=== PATIENT | male | born 1990 | race Two or more races ===

== ENCOUNTER 2020-08-08 17:17 | Outpatient (REF) | payer OTHER, SELFPAY ==
[2020-08-08 18:33] LABS: COVID-19 Test Negative (Negative)
== END 2020-08-08 17:18 | disposition home or self-care (01) ==
LOC: HO.LAB 17:17
PROVIDERS: Visit Provider Internal Medicine
DX: Z20.828 Contact with and (suspected) exposure to other viral communicable diseases (principal)
CPT/HCPCS: 87635

== ENCOUNTER 2020-08-28 11:26 | Outpatient (REF) | payer OTHER, SELFPAY | END 2020-08-28 11:27 | disposition home or self-care (01) | LOC: HO.LAB 11:26 | PROVIDERS: Visit Provider Internal Medicine | DX: Z20.828 Contact with and (suspected) exposure to other viral communicable diseases (principal) | CPT/HCPCS: U0003 ==

== ENCOUNTER → 2021-03-11 09:20 | Outpatient (REF) | payer OTHER, SELFPAY ==
--- NOTE | ~2021-03-11 | US_ITS ---
EXAMINATION: US ABDOMEN LIMITED CLINICAL INFORMATION: Other specified abnormal findings of blood chemistry. COMPARISON: None TECHNIQUE: Real-time imaging of the right upper quadrant abdominal viscera. FINDINGS: PANCREAS: Head and body the pancreas are normal. The tail is not well seen due to bowel gas. LIVER: Normal. The liver is normal in size. The liver contour is normal. Parenchymal echogenicity is normal. No focal hepatic lesion. There is no intrahepatic biliary duct dilatation seen. GALLBLADDER: . The gallbladder is physiologically distended without evidence of stones, sludge, polyps, wall thickening or pericholecystic fluid. There is a phrygian cap. COMMON BILE DUCT: Not optimally visualized. The visualized common bile duct is normal in caliber measuring 0.5 cm in diameter. RIGHT KIDNEY: Normal. No hydronephrosis. No renal calculi or focal parenchymal lesions. The kidney measures 9.2 cm in maximum dimension. FREE FLUID: None. US/US abdomen limited IMPRESSION: Limited visualization of the tail the pancreas and common bile duct otherwise unremarkable exam.
== END ==
LOC: HO.SL 09:20
PROVIDERS: PCP Internal Medicine; Visit Provider Internal Medicine
DX: R79.89 Other specified abnormal findings of blood chemistry (principal); R94.5 Abnormal results of liver function studies; G47.10 Hypersomnia, unspecified
CPT/HCPCS: 76705

== ENCOUNTER 2021-08-20 11:28 | Emergency (ER) | payer OTHER, SELFPAY ==
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
[2021-08-20 11:40] VITALS: BP 127/70; PULSE 78; RESP 16; TEMP 36.6; O2SAT 99; BMI 28.1
[2021-08-20] MEDS: Ibuprofen 600 MG TABLET PO (12:25)
[2021-08-20] MEDS: Lidocaine 4 % Patch ADH..PATCH 1 PATCH TRANSDERMA (12:25)
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
[2021-08-20 13:30] VITALS: RESP 18
== END 2021-08-20 14:05 | disposition home or self-care (01) ==
PROVIDERS: Emergency Provider Emergency Medicine
DX: S29.012A Strain of muscle and tendon of back wall of thorax, initial encounter (principal); V43.52XA Car driver injured in collision with other type car in traffic accident, initial encounter; Y93.89 Activity, other specified; Y92.411 Interstate highway as the place of occurrence of the external cause; Y99.9 Unspecified external cause status
CPT/HCPCS: 72072; 99283; 99284

== ENCOUNTER → 2022-06-10 09:39 | Outpatient (BNVA) | payer SELFPAY | PROVIDERS: Visit Provider Physician Assistant Medical | DX: Z02.79 Encounter for issue of other medical certificate (principal) ==

== ENCOUNTER 2022-10-08 10:57 | Outpatient (REF) | payer OTHER, SELFPAY ==
--- NOTE | ~2022-10-08 | MM_ITS ---
EXAMINATION: MM DIAGNOSTIC DIGITAL BREAST TOMOSYNTHESIS BILATERAL BREAST ULTRASOUND CLINICAL INFORMATION: Bilateral gynecomastia. Retroareolar mass 1 cm bilateral. COMPARISON: Mammography: None. TECHNIQUE: Digital breast tomosynthesis is performed in both the craniocaudal and mediolateral oblique views along with computer-aided detection (CAD). Synthesized 2D images are generated from the tomosynthesis. Bilateral targeted breast ultrasound. FINDINGS: There are scattered areas of fibroglandular density (ACR BI-RADS breast composition Category b). There are no significant masses, abnormal calcifications, or other abnormalities. No abnormal cystic or solid mass or region of abnormal distal sound shadowing was seen with ultrasound of both breasts. No edematous change is identified. Results are discussed with the patient at time of visit. MM/MM tomosynthesis diagnostic BI IMPRESSION: No mammographic or ultrasound evidence of malignancy. ASSESSMENT: BI-RADS 1: Negative. RECOMMENDATION: Clinical follow-up.
== END 2022-10-08 10:58 | disposition home or self-care (01) ==
LOC: HO.MAMMO 10:57
PROVIDERS: PCP Internal Medicine; Visit Provider Internal Medicine
DX: N62 Hypertrophy of breast (principal); K40.90 Unilateral inguinal hernia, without obstruction or gangrene, not specified as recurrent
CPT/HCPCS: 76642; 77062; 77066

== ENCOUNTER → 2022-10-13 08:58 | Outpatient (BNVA) | payer OTHER, SELFPAY | PROVIDERS: PCP Internal Medicine; Referring Provider Internal Medicine; Visit Provider Surgery | DX: K40.90 Unilateral inguinal hernia, without obstruction or gangrene, not specified as recurrent (principal); E78.00 Pure hypercholesterolemia, unspecified; N28.9 Disorder of kidney and ureter, unspecified; R94.5 Abnormal results of liver function studies; G47.33 Obstructive sleep apnea (adult) (pediatric); L73.9 Follicular disorder, unspecified; Z99.89 Dependence on other enabling machines and devices | CPT/HCPCS: 99202 ==

== ENCOUNTER 2022-11-19 07:59 | Outpatient (REF) | payer OTHER, SELFPAY ==
[2022-11-19 08:24] LABS: MANUAL DIFF FLAG NO
[2022-11-19 08:31] LABS: Basophils Percent Auto 0.2 % (0-2); Eosinophils Absolute Auto 0.1 X10*3/uL (0.0-0.4); Eosinophils Percent Auto 1.4 % (0-4); Hematocrit 42.8 % (42.0-52.0); Imm Gran Abs Auto 0.03 X10*3/uL (0.00-0.03); Imm Gran Pct Auto 0.5 % (0.0-0.4); Lymphocytes Absolute Auto 1.5 X10*3/uL (1.2-4.9); Lymphocytes Percent Auto 22.6 % (20-40); Mean Corpuscular HGB Conc 32.7 g/dl (31.0-36.0); Mean Corpuscular Hemoglobin 27.3 pg (27.0-33.0); Mean Corpuscular Volume 83.6 fL (80.0-98.0); Mean Platelet Volume 9.7 fL (9.4-12.4); Monocytes Absolute Auto 1.1 X10*3/uL (0.1-1.2); Monocytes Percent Auto 16.5 % (2-11); Neutrophils Absolute Auto 3.8 x10*3/uL (2.0-8.3); Neutrophils Percent Auto 58.8 % (45-73); Platelet Count 221 X10*3/uL (160-400); Red Blood Count 5.12 X10*6/uL (4.60-5.80); Red Cell Distribution Width 13.1 % (11.0-16.0); White Blood Count 6.5 X10*3/uL (4.8-10.8)
[2022-11-19 09:17] LABS: Alanine Aminotransferase 57 U/L (0-40); Albumin Level 4.2 g/dL (3.5-5.0); Alkaline Phosphatase 95 U/L (39-117); Anion Gap 13 (12-20); Aspartate Amino Transferase 44 U/L (5-37); Bilirubin Total 0.4 mg/dL (0.0-1.0); Blood Urea Nitrogen 13 mg/dL (9-16); Carbon Dioxide 26 mmol/L (22-29); Chloride 107 mmol/L (96-108); Cholesterol 204 mg/dL; Estimated Glomerular Filt Rate 58; Glucose Random 104 mg/dL (60-115); HDL Cholesterol 36 mg/dL; LDL Cholesterol Calculated 138 mg/dl; Potassium 4.1 mmol/L (3.3-5.1); Sodium 142 mmol/L (135-145); Total Protein 7.1 g/dL (6.5-8.0); Triglycerides 150 mg/dL
[2022-11-19 09:23] LABS: HBS Num1 3.18 mIU/mL (0-7.99); HBc Num1 0.07 S/CO (0.00-0.79); Hepatitis B Core Antibody Nonreactive (Nonreactive); Hepatitis B Surface Antigen Negative (Negative); ~HepC Num1 0.11 S/CO (0.00-0.79); ~Hepatitis B Surface Antibody NONREACTIVE (Nonreactive); ~Hepatitis C Antibody Nonreactive (Nonreactive)
[2022-11-19 09:25] LABS: Free T4 (Free Thyroxine) 0.91 ng/dL (0.71-1.85); Thyroid Stimulating Hormone 0.84 uIU/mL (0.32-4.0)
[2022-11-19 09:35] LABS: Folate 9.8 ng/mL (> or = 4.0); Vitamin B12 586 pg/mL (200-900)
== END 2022-11-19 08:00 | disposition home or self-care (01) ==
LOC: HO.LAB 07:59
PROVIDERS: PCP Internal Medicine; Visit Provider Internal Medicine
DX: R79.89 Other specified abnormal findings of blood chemistry (principal); R94.5 Abnormal results of liver function studies; N28.9 Disorder of kidney and ureter, unspecified; E78.00 Pure hypercholesterolemia, unspecified
CPT/HCPCS: 36415; 80053; 80061; 82607; 82746; 84439; 84443; 85025; 86704; 86706; 86803; 87340

== ENCOUNTER → 2022-12-08 09:26 | Outpatient (BNVA) | payer OTHER, SELFPAY | PROVIDERS: PCP Internal Medicine; Referring Provider Internal Medicine; Visit Provider Surgery | DX: K40.90 Unilateral inguinal hernia, without obstruction or gangrene, not specified as recurrent (principal); E78.00 Pure hypercholesterolemia, unspecified; R94.5 Abnormal results of liver function studies | CPT/HCPCS: 99212 ==

== ENCOUNTER 2023-01-24 21:05 | Observation (INO) | payer OTHER, SELFPAY ==
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
[2023-01-24 21:12] VITALS: BP 144/88; PULSE 150; O2SAT 95; BMI 31.1
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
[2023-01-24 21:23] VITALS: RESP 28
[2023-01-24] MEDS: fentaNYL citrate/PF 100 MCG/2 ML VIAL 25 MCG IVPUSH ×2 (21:23→21:49)
[2023-01-24] MEDS: 0.9 % Sodium Chloride 1,000 ML 999 ML IV ×2 (21:25→23:23)
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
[2023-01-24 21:35] VITALS: BP 167/92; PULSE 116; RESP 22; O2SAT 95
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
[2023-01-24] MEDS: Diphth,Pertus(ACell),Tet Adult 0.5 ML SYRINGE IM (21:49)
[2023-01-24] MEDS: Bacitracin Oint 0.9 GM PACKET 1 APPL TOPICAL (21:49)
[2023-01-24] MEDS: iohexoL 350 MG/ML 100 ML INFUS..BTL IV (21:59)
[2023-01-24] MEDS: Bacitracin Oint 14 GM TUBE 1 APPL TOPICAL (22:10)
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
[2023-01-24 22:25] VITALS: BP 148/91; PULSE 130; RESP 15; O2SAT 95
--- NOTE | 2023-01-24 22:29 | PC.NURSE ---
Addendum entered by Radha Eugene RN 01/24/23 23:14: PD still at the bedside as of 23:14. EKG documentation and wound dressing has been delayed. Pt condition has remained stable. Original Note: [place] PD is at bedside talking to pt. Pt i A&Ox4, able to recall all events leading up to arriving at the ER.
[2023-01-24 22:35] LABS: Basophils Percent Auto 0.2 % (0-2); Hematocrit 40.4 % (42.0-52.0); Imm Gran Abs Auto 0.09 X10*3/uL (0.00-0.03); Imm Gran Pct Auto 0.5 % (0.0-0.4); Lymphocytes Percent Auto 5.4 % (20-40); MANUAL DIFF FLAG SCAN; Mean Corpuscular HGB Conc 34.7 g/dl (31.0-36.0); Mean Corpuscular Hemoglobin 28.4 pg (27.0-33.0); Mean Corpuscular Volume 81.9 fL (80.0-98.0); Mean Platelet Volume 9.6 fL (9.4-12.4); Monocytes Absolute Auto 1.9 X10*3/uL (0.1-1.2); Monocytes Percent Auto 10.2 % (2-11); Neutrophils Absolute Auto 15.3 x10*3/uL (2.0-8.3); Neutrophils Percent Auto 83.7 % (45-73); Platelet Count 252 X10*3/uL (160-400); Red Blood Count 4.93 X10*6/uL (4.60-5.80); Red Cell Distribution Width 13.2 % (11.0-16.0); SCAN SMEAR FLAG 1; White Blood Count 18.2 X10*3/uL (4.8-10.8)
[2023-01-24 22:43] LABS: COVID-19 Test Negative (Negative); IDNOW Serial# 6674DD1D
[2023-01-24 22:45] LABS: INTERNATIONAL NORM RATIO 1.1 (0.9-1.1); Prothrombin Time 12.7 SEC (10.0-13.1)
[2023-01-24 22:47] LABS: Ethanol < 10 mg/dL
[2023-01-24 22:49] LABS: Alanine Aminotransferase 57 U/L (0-40); Albumin Level 4.3 g/dL (3.5-5.0); Alkaline Phosphatase 76 U/L (39-117); Anion Gap 16 (12-20); Aspartate Amino Transferase 55 U/L (5-37); Bilirubin Total 0.6 mg/dL (0.0-1.0); Blood Urea Nitrogen 15 mg/dL (9-16); Calcium 8.7 mg/dL (8.4-10.2); Carbon Dioxide 21 mmol/L (22-29); Chloride 107 mmol/L (96-108); Creatinine Clr Calc Pharmacy 74.7; Estimated Glomerular Filt Rate 53; Glucose Random 137 mg/dL (60-115); Potassium 4.5 mmol/L (3.3-5.1); Sodium 139 mmol/L (135-145); Total Protein 7.2 g/dL (6.5-8.0)
[2023-01-24 23:01] LABS: SLIDE REVIEW VERIFIED
--- NOTE | 2023-01-24 23:10 | MHC.EDTECH ---
[place] PD, [place] [employer] continue to be at bedside. EKG delayed due to their continued presence. Pt tolerating questioning well. Pt given Ice chips per Dr Rosario.
--- NOTE | 2023-01-24 23:24 | PC.NURSE ---
Dr Rosario stated we can take c-collar off. C-collar has been removed, second liter of fluid hung.
[2023-01-25] VITALS: BP 145/77; PULSE 110; RESP 26; TEMP 37.6; O2SAT 98
[2023-01-25 00:24] LABS: Appearance Urine Clear; Color Urine Yellow; Glucose Urine UA 250 mg/dL (Negative); Leukocyte Esterase Urine Negative (Negative); Nitrite Urine Negative (Negative); Specific Gravity - Urine >= 1.030 (1.005-1.025); UMIC TRIGGER UACC YES; Urine Blood Small (1+) (Negative); Urine Ketones Trace mg/dL (Negative); Urine Protein 100 (2+) mg/dL (Neg-Trace)
[2023-01-25 00:35] LABS: Amphetamine Screen Urine Not Detected (Not Detect); Bacteria Urine None Seen (None Seen); Barbiturates, Urine Not Detected (Not Detect); Benzodiazepines Screen Urine Not Detected (Not Detect); Cannabinoid Screen Urine Not Detected (Not Detect); Cocaine Screen Urine Not Detected (Not Detect); Fentanyl, urine POSITIVE (Not Detect); Opiate Screen Urine Not Detected (Not Detect); Phencyclidine Screen Urine Not Detected (Not Detect); RBC Urine 0-2 /HPF (0-2); Squamous Epithelial Cell Urine 0-2 /HPF (0-2); WBC Urine 0-5 /HPF (0-5)
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
[2023-01-25 01:00] LABS: Glucose, Whole Blood 134 mg/dL (60-115)
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
[2023-01-25] MEDS: Acetaminophen 325 MG TABLET 650 MG PO ×2 (02:25→08:52)
[2023-01-25] MEDS: Lactated Ringers 1,000 ML 125 ML IVCONT (02:28)
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
--- NOTE | 2023-01-25 02:37 | MHC.EDTECH ---
pt given a sandwich and snacks, tolerated well. pt is with family t this time
[2023-01-25 03:02] VITALS: BP 137/81; PULSE 109; RESP 18; TEMP 37; O2SAT 96
[2023-01-25 03:19] VITALS: BMI 29.5
[2023-01-25 06:00] LABS: MANUAL DIFF FLAG NO
[2023-01-25 06:07] LABS: Basophils Percent Auto 0.2 % (0-2); Hematocrit 39.9 % (42.0-52.0); Hemoglobin 13.1 g/dl (14.0-18.0); Imm Gran Abs Auto 0.06 X10*3/uL (0.00-0.03); Imm Gran Pct Auto 0.5 % (0.0-0.4); Lymphocytes Absolute Auto 1.6 X10*3/uL (1.2-4.9); Lymphocytes Percent Auto 12.6 % (20-40); Mean Corpuscular HGB Conc 32.8 g/dl (31.0-36.0); Mean Corpuscular Hemoglobin 27.6 pg (27.0-33.0); Mean Platelet Volume 10.1 fL (9.4-12.4); Monocytes Absolute Auto 1.4 X10*3/uL (0.1-1.2); Monocytes Percent Auto 10.9 % (2-11); Neutrophils Absolute Auto 9.7 x10*3/uL (2.0-8.3); Neutrophils Percent Auto 75.8 % (45-73); Platelet Count 249 X10*3/uL (160-400); Red Blood Count 4.75 X10*6/uL (4.60-5.80); Red Cell Distribution Width 13.4 % (11.0-16.0); White Blood Count 12.7 X10*3/uL (4.8-10.8)
[2023-01-25 06:45] LABS: Anion Gap 13 (12-20); Blood Urea Nitrogen 12 mg/dL (9-16); Calcium 8.5 mg/dL (8.4-10.2); Carbon Dioxide 20 mmol/L (22-29); Chloride 108 mmol/L (96-108); Creatinine Clr Calc Pharmacy 91.5; Estimated Glomerular Filt Rate > 60; Glucose Random 113 mg/dL (60-115); Potassium 4.4 mmol/L (3.3-5.1); Sodium 137 mmol/L (135-145)
[2023-01-25 07:48] VITALS: BP 123/71; PULSE 101; RESP 18; TEMP 37.1; O2SAT 98
[2023-01-25 07:49] LABS: Estimated Average Glucose 108 mg/dL; Hemoglobin A1c % 5.4 %
--- NOTE | 2023-01-25 09:05 | PHA.MEDREC ---
Pharmacy Consult ? Medication Reconciliation Pharmacy has completed the medication reconciliation. spoke with patient. only takes tylenol when needed.
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
--- NOTE | 2023-01-25 09:35 | MHC.CM.PN ---
PT WILL DC HOME TODAY WITH NO SERVICES FAMILY TO TRANSPORT
--- NOTE | 2023-01-25 15:22 | MHC.CM.PN ---
PT LIVES WITH HIS S/O AND IS INDEPENDENT WITH CARE NO CM INTERVENTION INDICATED PT DISCHARGING HOME TODAY WITH NO SERVICES FAMILY TO TRANSPORT
== END 2023-01-25 11:16 | disposition home or self-care (01) ==
LOC: HO.ED 01-25 01:11 → HO.EDOVER 01-25 02:10 → HO.S3 01-25 02:17
PROVIDERS: Admitting Provider Internal Medicine; Emergency Provider Student in an Organized Health Care Education/Training Program; PCP Internal Medicine; Visit Provider Internal Medicine
DX: S00.83XA Contusion of other part of head, initial encounter (principal); S01.81XA Laceration without foreign body of other part of head, initial encounter; S81.011A Laceration without foreign body, right knee, initial encounter; S81.812A Laceration without foreign body, left lower leg, initial encounter; S60.812A Abrasion of left wrist, initial encounter; S60.811A Abrasion of right wrist, initial encounter; S90.512A Abrasion, left ankle, initial encounter; S90.511A Abrasion, right ankle, initial encounter; T24.512A Corrosion of first degree of left thigh, initial encounter; T24.511A Corrosion of first degree of right thigh, initial encounter; T22.192A Burn of first degree of multiple sites of left shoulder and upper limb, except wrist and hand, initial encounter; T22.191A Burn of first degree of multiple sites of right shoulder and upper limb, except wrist and hand, initial encounter; T32 Corrosions classified according to extent of body surface involved; X98.2XXA Assault by hot fluids, initial encounter; T79.6XXA Traumatic ischemia of muscle, initial encounter; N17.9 Acute kidney failure, unspecified; D72.829 Elevated white blood cell count, unspecified; E78.00 Pure hypercholesterolemia, unspecified; K40.90 Unilateral inguinal hernia, without obstruction or gangrene, not specified as recurrent; Z20.822 Contact with and (suspected) exposure to COVID-19; Y93.9 Activity, unspecified; Y92.9 Unspecified place or not applicable; Y99.9 Unspecified external cause status
CPT/HCPCS: 16000; 36415; 70450; 70486; 70491; 71260; 74177; 80048; 80053; 80307; 81001; 82077; 82550; 82947; 83036; 84484; 85025; 85610; 86850; 86900; 86901; 87635; 90471; 90715; 93005; 96361; 96374; 96376; 99221; 99285; J3010; Q9967

== ENCOUNTER 2023-02-02 08:07 | Outpatient (RCR) | payer OTHER, SELFPAY | END 2023-02-20 13:43 | disposition home or self-care (01) | LOC: HO.WCC 08:07 | PROVIDERS: PCP Internal Medicine; Visit Provider Physician Assistant | DX: S91.011A Laceration without foreign body, right ankle, initial encounter (principal); S81.812A Laceration without foreign body, left lower leg, initial encounter; T21.22XA Burn of second degree of abdominal wall, initial encounter; T24.212A Burn of second degree of left thigh, initial encounter; T24.211A Burn of second degree of right thigh, initial encounter; T31.10 Burns involving 10-19% of body surface with 0% to 9% third degree burns; X97.XXXA Assault by smoke, fire and flames, initial encounter; X99.9XXA Assault by unspecified sharp object, initial encounter; Y93.9 Activity, unspecified; Y92.9 Unspecified place or not applicable; Y99.9 Unspecified external cause status | CPT/HCPCS: 99212; 99214 ==

== ENCOUNTER 2023-10-13 07:56 | Outpatient (REF) | payer OTHER, SELFPAY ==
[2023-10-13 09:07] LABS: Alanine Aminotransferase 45 U/L (0-40); Albumin Level 4.5 g/dL (3.5-5.0); Alkaline Phosphatase 66 U/L (39-117); Anion Gap 12 (12-20); Aspartate Amino Transferase 37 U/L (5-37); Bilirubin Total 0.5 mg/dL (0.0-1.0); Blood Urea Nitrogen 17 mg/dL (9-16); Calcium 9.5 mg/dL (8.4-10.2); Carbon Dioxide 26 mmol/L (22-29); Chloride 108 mmol/L (96-108); Cholesterol 230 mg/dL (<200); Estimated Glomerular Filt Rate > 60; Glucose Random 93 mg/dL (60-115); HDL Cholesterol 44 mg/dL (>40); LDL Cholesterol Calculated 145 mg/dL (<100); Potassium 3.9 mmol/L (3.3-5.1); Sodium 142 mmol/L (135-145); Total Protein 8.2 g/dL (6.5-8.0); Triglycerides 209 mg/dL (<150)
[2023-10-13 09:12] LABS: Estimated Average Glucose 108 mg/dL; Hemoglobin A1c % 5.4 % (<6.0)
== END 2023-10-13 07:57 | disposition home or self-care (01) ==
LOC: HO.LAB 07:56
PROVIDERS: PCP Internal Medicine; Referring Provider Physician Assistant; Visit Provider Internal Medicine
DX: T79.6XXD Traumatic ischemia of muscle, subsequent encounter (principal); R94.5 Abnormal results of liver function studies; E78.00 Pure hypercholesterolemia, unspecified; L03.119 Cellulitis of unspecified part of limb
CPT/HCPCS: 36415; 80053; 80061; 82550; 83036

== ENCOUNTER 2023-10-16 11:28 | Outpatient (AMB) | payer OTHER, SELFPAY ==
[2023-10-16 11:31] VITALS: BP 122/70; PULSE 58; O2SAT 99; BMI 28.8
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
== END 2023-10-16 12:16 | disposition home or self-care (01) ==
PROVIDERS: Visit Provider Internal Medicine
DX: Z00.00 Encounter for general adult medical examination without abnormal findings (principal); T79.6XXD Traumatic ischemia of muscle, subsequent encounter; N28.9 Disorder of kidney and ureter, unspecified; E78.00 Pure hypercholesterolemia, unspecified; G47.33 Obstructive sleep apnea (adult) (pediatric); Z99.89 Dependence on other enabling machines and devices; K40.90 Unilateral inguinal hernia, without obstruction or gangrene, not specified as recurrent; M25.572 Pain in left ankle and joints of left foot
CPT/HCPCS: 99395

== ENCOUNTER 2024-10-17 12:38 | Outpatient (AMB) | payer OTHER, SELFPAY ==
--- NOTE | 2024-10-17 12:41 | MHC.PC.OV ---
Vital Signs 10/17/24 12:42 Height 5 ft 7 in Weight 189 lb BMI 29.6 BP 128/78 Blood Pressure Location Lt brachial Position Sitting Pulse 81 Pulse Source Pulse Oximeter Pulse Oximetry (%) 98 Oxygen Delivery Method Room Air Intake Visit Reasons: pe Intake Note: Cold symptoms starting yesterday. Allergies No Known Allergies [No Known Allergies*] Allergy (Verified 10/17/24 12:42) Medication List - Last Reconciled 10/17/24 by Mignon Harris MD No Known Home Meds Tobacco use date assessed: 10/17/24 Dental Screening Dental Screen Date: 10/17/24 Did you have a dental visit in the last 12 months?: Yes Did you have a dental problem in the last 6 months where you did not have access to dental care?: No Was dental information given to patient?: Patient has dentist HPI pe HPI Details The patient is a 34-year-old male presenting with the need for a follow-up physical examination. In January, the patient experienced mild anemia following an episode of rhabdomyolysis with associated [place]. At that time, the patient's hemoglobin level was noted to be 13.1 g/dL compared to the normal range starting at 14 g/dL. A follow-up blood test has been requested to ensure normalization of these levels. There was also concern for elevated kidney function tests, attributed to muscle mass loss, and this will be monitored, as the kidney numbers had previously increased. Additionally, previous laboratory work showed elevated liver function tests and high cholesterol, specifically a low-density lipoprotein level of 175 mg/dL. The patient reported knee pain that is linked with a suspected hernia, for which a surgical intervention had been scheduled but was postponed due to other events. Hearing was mostly intact except for some reported congestion and past eardrum scarring without current pain. - Blood work requisitioned to monitor anemia, kidney function, liver function, and cholesterol levels. - Advised fasting for eight hours prior to the blood test. - Discussion about availability of flu vaccines due to the ongoing flu season. - Emphasis on adequate hydration. - Reports intake of alcohol as two beers a week. - No use of cigarettes, recreational drugs, or vaping currently. - Previous use of marijuana during youth. - Mentions having a girlfriend, who was sick recently. - Reports of having knee pain, requiring a surgical schedule for a related hernia. - General: Denies dizziness, fainting, nausea, or vomiting. - Cardiovascular: Denies chest pain or shortness of breath. - Gastrointestinal: Rarely experiences heartburn; denies regular problems with bowel movements. - Genitourinary: Denies problems urinating, with rare nocturia. - Ears, Nose, Throat: Reports earache and congestion. - Neurological: Denies any vision problems or headaches. - Labs: Hemoglobin 13.1 g/dL (previously noted), elevated kidney and liver function blood tests, LDL 175 mg/dL. [facility] Medical History (Updated 10/17/24 @ 13:05 by Mignon Harris MD) Annual physical exam NICO on CPAP Gynecomastia Elbow dislocation Surgical History Hx of appendectomy History of ankle surgery History of surgery S/P knee surgery Social History (Updated 10/16/23 @ 11:58 by Mignon Harris MD) Housing: Apartment Alcohol intake: current Comment: once a month 2 [facility] Patient Tobacco Use Status: Never used Tobacco Tobacco use type: Cigarette e-Cigarette/Vaping Use: Never Used Second Hand Smoke Exposure: No service: No Current occupational status: employed Current occupational exposures/hazards: No Cognitive needs: No Hearing needs: No Vision needs: No Questionnaire PHQ-9 Over the last 2 weeks, how often have you been bothered by any of the following problems? 1. Little interest or pleasure in doing things: not at all 2. Feeling down, depressed, or hopeless: not at all 3. Trouble falling or staying asleep, or sleeping too much: not at all 4. Feeling tired or having little energy: not at all 5. Poor appetite or overeating: not at all 6. Feeling bad about yourself - or that you are a failure or have let yourself or your family down: not at all 7. Trouble concentrating on things, such as reading the newspaper or watching television: not at all 8. Moving or speaking so slowly that other people could have noticed. Or the opposite - being so fidgety or restless that you have been moving around a lot more than usual: not at all 9. Thoughts that you would be better off or of hurting yourself in some way: not at all Total score: 0 Source: Developed by Drs. Leander Lindo, Tammy Howard, Lino Reyes and colleagues, with an educational rosmery from [employer]. Thrive Questionnaire Date Thrive assessed: 10/17/24 I am a: Patient What is your living situation today?: I choose not to answer this question Within the past 12 months, did the food you bought not last and you didn't have the money to get more?: I choose not to answer this question Within the past 12 months, did you worry whether your food would run out before you got money to buy more?: I choose not to answer this question Do you have trouble paying for medicines?: I choose not to answer this question Do you have trouble getting transportation to medical appointments?: I choose not to answer this question Do you have trouble paying your heating and electricity bill?: I choose not to answer this question Do you have trouble taking care of your child, family member or friend?: I choose not to answer this question Do you have trouble with day-to-day activities such as bathing, preparing meals, shopping, managing finances, etc.?: I choose not to answer this question Are you currently unemployed and looking for a job?: I choose not to answer this question Are you interested in more education?: I choose not to answer this question Please select the resources that you would like help with: None Currently or been in a relationship where the following occur: I choose not to answer THRIVE Score: 0 AUDIT C Alcohol Use Questionnaire (AUDIT-C) 1. How often do you have a drink containing alcohol?: Never Total Score: 0 CHILO-7 AMB Questionnaire CHILO-7 Date CHILO - 7 assessed: 10/17/24 Feeling nervous, anxious, or on edge: 0 = Not at all Not being able to stop or control worryin = Not at all Worrying too much about different things: 0 = Not at all Trouble relaxin = Not at all Being so restless that it is hard to sit still: 0 = Not at all Becoming easily annoyed or irritable: 0 = Not at all Feeling afraid as if something awful might happen: 0 = Not at all Total CHILO-7 score (0-4 normal; 5-9 mild; 10-14 moderate; 15-21 severe): 0 Source: Developed by Tammy Gooden.W. Lee, Lino Reyes and colleagues, with an educational rosmery from [employer]. Review of Systems Const Denies poor appetite and Denies weakness Eyes Denies no additional complaints ENT Reports Normal hearing present, Denies dizziness, Denies nasal congestion, Denies tinnitus and Denies sore throat Card Denies chest pain, Denies syncope, Denies rapid heart rate and Denies dyspnea Resp Denies cough and Denies dyspnea GI Denies change in stool character, Reports constipation, Denies diarrhea, Denies nausea and Denies vomiting Denies dysuria and Denies urinary frequency Neuro Reports Normal hearing present, Denies confusion, Denies dizziness, Denies syncope and Denies weakness Psych Denies confusion Physical exam (Primary Care) Vital Signs: Last Vital Signs Pulse 81 10/17/24 12:42 BP 128/78 10/17/24 12:42 Pulse Ox 98 10/17/24 12:42 Oxygen Delivery Method Room Air 10/17/24 12:42 BMI result Body Mass Index 29.6 Tobacco/Smoking Status: Tobacco use Status Tobacco use date assessed 10/17/24 10/17/24 12:46 Patient Tobacco Use Status Never used Tobacco 10/17/24 12:46 Tobacco use type Cigarette 10/17/24 12:46 e-Cigarette/Vaping Use Never Used 10/17/24 12:46 PHQ-9: PHQ-9 Score PHQ-9: Total score 0 10/17/24 12:51 Thrive Assessment: Date of Thrive Assessment Date Thrive assessed 10/17/24 10/17/24 12:46 Currently or been in a relationship where the following occur: I choose not to answer Const General: No confusion Orientation/consciousness: No confusion HENMT Head: Yes normocephalic Ears: external ears normal and TM's normal bilaterally Face and sinus: Yes normal facial exam Mouth: moist mucous membranes Throat: Yes tonsils normal Eyes Conjunctivae: conjunctivae normal Pupils: Equal, round and reactive pupils present and Pupil accommodation reflex normal Direct Ophthalmoscopy: normal light reflex Neck Neck: No lymphadenopathy Thyroid: Thyroid normal Chest Chest palpation & inspection: normal inspection of the chest Resp Effort & Inspection: normal respiratory effort and no audible wheezes Auscultation: clear to auscultation bilaterally, no crackles, no wheezes and lung sounds not diminished Cardio Rate: regular rate Rhythm: regular rhythm Peripheral pulses: radial pulses present and dorsalis pedis present GI Palpation (GI): no masses Auscultation: normal bowel sounds and normoactive bowel sounds Rectal Exam - Male: Yes deferred Skin General skin exam: no rashes or lesions noted Rashes: no rashes Neuro General: No confusion Cranial nerves: Yes Equal, round and reactive pupils present and Yes Normal hearing present Cognition (Neuro): normal cognition Gait exam (Neuro): Normal gait present Motor exam (neuro): 5/5 motor strength present throughout Deep tendon reflexes (DTR's): Right brachioradialis reflex intensity grade: 2+, Left brachioradialis reflex intensity grade: 2+, Right patellar reflex intensity grade: 2+ and Left patellar reflex intensity grade: 2+ Extrem General: No edema Coding Level of Care Code Est Pt Prev Care 18-39y(60994) Diagnoses Annual physical exam Z00.00 Anemia D64.9 Hypercholesterolemia E78.00 Renal insufficiency N28.9 Right inguinal hernia K40.90 Nasal congestion R09.81 Assessment & Plan Assessment & Plan (1) Annual physical exam: Code(s): Z00.00 - Encounter for general adult medical examination without abnormal findings Category: Medical (2) Anemia: Code(s): D64.9 - Anemia, unspecified Category: Medical (3) Hypercholesterolemia: Code(s): E78.00 - Pure hypercholesterolemia, unspecified Category: Medical (4) Renal insufficiency: Code(s): N28.9 - Disorder of kidney and ureter, unspecified Category: Medical (5) Right inguinal hernia: Code(s): K40.90 - Unilateral inguinal hernia, without obstruction or gangrene, not specified as recurrent Category: Medical (6) Nasal congestion: Code(s): R09.81 - Nasal congestion Category: Medical Plan - Recheck blood work with emphasis on kidney, liver function, cholesterol, and hemoglobin levels. - Advise the patient to remain fasting before the lab tests. - Monitor the knee pain and current status of suspected hernia; reschedule surgical appointment. - Ensure hydration is adequate and encourage lifestyle modifications as necessary. - Suggest use of prescribed nasal spray for ear and possible congestion issues. - Reassure and guide regarding judicious alcohol consumption and avoid smoking or recreational drug use. During the visit, I discussed the importance of monitoring the anemia and ensuring all deficiencies have resolved. We reviewed the implications of elevated cholesterol and liver enzymes and emphasized the need for regular monitoring. I advised fasting before any bloodwork, emphasizing the role of hydration. We talked about the knee pain issue likely related to a hernia and the need to reschedule surgery, considering the previous incident that postponed the procedure. I reminded the patient about the importance of lifestyle choices involving alcohol, smoking, and general health maintenance. Lastly, we discussed the potential need for vaccinations, such as flu shots, during the current season for added protection. - Schedule and complete fasting blood work as directed. - Ensure hydration with adequate water intake daily. - Re-schedule surgical consult for knee pain and suspected hernia. - Adhere to lifestyle recommendations discussed, including moderation in alcohol use. - Use nose spray as directed for congestion management. - Call the office if no follow-up is received within three to four days post-lab tests. - Consider flu vaccination; take precautions against seasonal illnesses. Orders: Orders Reticulocyte Count Today D64.9 - Anemia, unspecified Comprehensive Met. Panel Today N28.9 - Disorder of kidney and ureter, unspecified Lipid Panel Today E78.00 - Pure hypercholesterolemia, unspecified, N28.9 - Disorder of kidney and ureter, unspecified Complete Blood Count Auto Diff Today D64.9 - Anemia, unspecified Ferritin Today D64.9 - Anemia, unspecified IRON PROFILE Today D64.9 - Anemia, unspecified Vitamin B12 and Folate Today D64.9 - Anemia, unspecified Thyroid Stimulating Hormone Today N28.9 - Disorder of kidney and ureter, unspecified Free T4 (Free Thyroxine) Today N28.9 - Disorder of kidney and ureter, unspecified Referrals General Surgery Referral K40.90 - Unilateral inguinal hernia, without obstruction or gangrene, not specified as recurrent Medications: New fluticasone propionate 50 mcg/actuation (Flonase Allergy Relief) administer into each nostril 2 sprays intranasal DAILY 16 grams 0RF R09.81 - Nasal congestion
[2024-10-17 12:42] VITALS: BP 128/78; PULSE 81; O2SAT 98; BMI 29.6
== END 2024-10-17 13:11 | disposition home or self-care (01) ==
PROVIDERS: PCP Internal Medicine; Visit Provider Internal Medicine
DX: Z00.00 Encounter for general adult medical examination without abnormal findings (principal); D64.9 Anemia, unspecified; E78.00 Pure hypercholesterolemia, unspecified; N28.9 Disorder of kidney and ureter, unspecified; K40.90 Unilateral inguinal hernia, without obstruction or gangrene, not specified as recurrent; R09.81 Nasal congestion

== ENCOUNTER → 2024-10-17 12:38 | Outpatient (BNVA) | payer OTHER, SELFPAY | PROVIDERS: PCP Internal Medicine; Visit Provider Internal Medicine | DX: Z00.00 Encounter for general adult medical examination without abnormal findings (principal); D64.9 Anemia, unspecified; E78.00 Pure hypercholesterolemia, unspecified; N28.9 Disorder of kidney and ureter, unspecified; R09.81 Nasal congestion; K40.90 Unilateral inguinal hernia, without obstruction or gangrene, not specified as recurrent | CPT/HCPCS: 96127; 99395 ==

== ENCOUNTER 2024-11-02 10:58 | Outpatient (AMB) | payer OTHER, SELFPAY ==
[2024-11-02 11:06] VITALS: BMI 29.6
--- NOTE | 2024-11-02 11:06 | MHC.OFFVIS ---
Vital Signs 11/02/24 11:06 Height 5 ft 7 in Weight 189 lb BMI 29.6 Intake Visit Reasons: Unilateral inguinal hernia Intake Note: This patient presents for Unilateral inguinal hernia. Pt c/o; right groin, reports bulge and discomfort. 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 He says that he has had this for maybe about 2 years now. He has noticed this reducible mass on his right groin. He actually was seen by Dr. Cooper in 2022 and he was scheduled for repair. However, the patient says that he got busy with work at that time and did not go ahead with the surgery. He still notices this reducible mass in the right groin with occasional discomfort. He denies any GI problems. [facility] Medical History (Updated 11/02/24 @ 11:36 by Getachew Meza MD) Reducible right inguinal hernia Annual physical exam NICO on CPAP Gynecomastia Elbow dislocation Surgical History Hx of appendectomy History of ankle surgery History of surgery S/P knee surgery Social History Housing: Apartment Alcohol intake: current Comment: once a month 2 beers Patient Tobacco Use Status: Never used Tobacco Tobacco use type: Cigarette e-Cigarette/Vaping Use: Never Used Second Hand Smoke Exposure: No service: No Current occupational status: employed Current occupational exposures/hazards: No Cognitive needs: No Hearing needs: No Vision needs: No Review of Systems Const Denies chills and Denies fever(s) Card Denies chest pain, Denies dyspnea and Denies dyspnea on exertion Resp Denies cough, Denies dyspnea and Denies dyspnea on exertion GI Denies hematochezia and Denies change in bowel habits Denies hematuria and Denies difficulty urinating Musc Denies back pain and Denies limited range of motion Neuro Denies focal weakness and Denies convulsions Psych Denies depression and Denies mood swings Physical Exam Vital Signs: BMI result Body Mass Index 29.6 Const General: comfortable and no acute distress Orientation/consciousness: patient oriented x3 Neck Neck: Yes no lymphadenopathy Resp Auscultation: clear to auscultation bilaterally Cardio Rhythm: regular rhythm GI Other: Reducible mass on the right groin consistent with a right inguinal hernia Palpation (GI): Soft to palpation, nontender and no guarding Neuro General: patient oriented x3 Assessment & Plan Assessment & Plan (1) Reducible right inguinal hernia: Code(s): K40.90 - Unilateral inguinal hernia, without obstruction or gangrene, not specified as recurrent Category: Medical Plan: He has discomfort with this right inguinal hernia and wants to proceed with repair. A I had a long discussion with him about the technique of repair of the right inguinal hernia with mesh placement. I reviewed the risks including but not limited to bleeding, infections, injury to bowel, testicle and the vas deferens or other organs, recurrence, postop pain, as well as the benefits and alternatives. I reviewed with him what to expect postoperatively including restrictions with work He says he understands and wants to proceed. Coding Level of Care Code Est Pt Level 3 (14152) Diagnoses Reducible right inguinal hernia K40.90
== END 2024-11-02 11:30 | disposition home or self-care (01) ==
PROVIDERS: PCP Internal Medicine; Visit Provider Surgery
DX: K40.90 Unilateral inguinal hernia, without obstruction or gangrene, not specified as recurrent (principal)
CPT/HCPCS: 99213

== ENCOUNTER → 2024-11-02 10:58 | Outpatient (BNVA) | payer OTHER, SELFPAY | PROVIDERS: PCP Internal Medicine; Visit Provider Surgery | DX: K40.90 Unilateral inguinal hernia, without obstruction or gangrene, not specified as recurrent (principal) | CPT/HCPCS: 99212 ==

== ENCOUNTER → 2024-11-25 06:33 | Outpatient (BNV) | payer OTHER, SELFPAY | PROVIDERS: PCP Internal Medicine; Visit Provider Surgery | DX: K40.90 Unilateral inguinal hernia, without obstruction or gangrene, not specified as recurrent (principal) | CPT/HCPCS: 49505 ==

== ENCOUNTER 2024-12-07 11:35 | Outpatient (AMB) | payer OTHER, SELFPAY ==
--- NOTE | 2024-12-07 11:40 | A.OFFVIS_ITS ---
Intake Visit Reasons: s/p RIH repair with mesh Intake Note: This patient presents for post-op assessment status post right inguinal hernia repair with mesh. Patient c/o; reports no concerns pertaining to surgery. Detail Supervisor Required: No Accompanied by: Self / Same As Patient Allergies No Known Allergies [No Known Allergies*] Allergy (Verified 12/07/24 11:41) HPI HPI s/p RIH repair with mesh: Details: He underwent repair of a right inguinal hernia with mesh last 11/25/2024. He tolerated procedure well. He currently denies significant complaints. He says he feels well overall. [facility] Medical History Obstructive sleep apnea Elevated cholesterol Rhabdomyolysis Reducible right inguinal hernia Gynecomastia Elbow dislocation Surgical History History of right inguinal hernia repair (~11/25/24) Hx of appendectomy History of ankle surgery History of surgery S/P knee surgery Social History Housing: Apartment Are you a primary floor care specialist to a significant other at home: No Do you presently have visiting nurse or other home services: No Alcohol intake: current Alcohol intake frequency: holidays/special occasions only Comment: once a month 2 beers Patient Tobacco Use Status: Never used Tobacco Tobacco use type: Cigarette e-Cigarette/Vaping Use: Never Used Second Hand Smoke Exposure: No service: No Current occupational status: employed Current occupational exposures/hazards: No Cognitive needs: No Hearing needs: No Vision needs: No Review of Systems Const Denies chills and Denies fever(s) Card Denies chest pain, Denies dyspnea and Denies dyspnea on exertion Resp Denies cough, Denies dyspnea and Denies dyspnea on exertion GI Denies hematochezia and Denies change in bowel habits Denies hematuria and Denies difficulty urinating Musc Denies back pain and Denies limited range of motion Neuro Denies focal weakness and Denies convulsions Psych Denies depression and Denies mood swings Physical Exam Const General: comfortable and no acute distress Resp Effort & Inspection: normal respiratory effort GI Other: Right inguinal hernia repair site is well healed, not infected, no evidence of recurrence Palpation (GI): Soft to palpation, not firm, nontender and no guarding Assessment & Plan Assessment & Plan (1) Right inguinal hernia: Code(s): K40.90 - Unilateral inguinal hernia, without obstruction or gangrene, not specified as recurrent Category: Medical Plan: Status post repair with mesh. He is doing very well. The repair site is intact. The incision is well healed. I advised him to avoid lifting anything more than 20 lb for full month after the procedure. He can follow up on a p.r.n. basis. Coding Level of Care Code Global (06510) Diagnoses Right inguinal hernia K40.90
== END 2024-12-07 11:51 | disposition home or self-care (01) ==
PROVIDERS: PCP Internal Medicine; Visit Provider Surgery
DX: K40.90 Unilateral inguinal hernia, without obstruction or gangrene, not specified as recurrent (principal)
CPT/HCPCS: 99024

== ENCOUNTER → 2024-12-07 11:35 | Outpatient (BNVA) | payer OTHER, SELFPAY | PROVIDERS: PCP Internal Medicine; Visit Provider Surgery | DX: Z09 Encounter for follow-up examination after completed treatment for conditions other than malignant neoplasm (principal); Z87.19 Personal history of other diseases of the digestive system; Z98.890 Other specified postprocedural states | CPT/HCPCS: 99212 ==